=== PATIENT | male | born 1935 | race Caucasian/White ===

== ENCOUNTER → 2016-04-23 | Outpatient (CLI) | payer OTHER | PROVIDERS: ATTEND Psychiatry & Neurology Neurology | DX: R13.13 Dysphagia, pharyngeal phase (principal) | CPT/HCPCS: 74230; 92611; G8996; G8997; G8998 ==

== ENCOUNTER 2017-12-06 18:59 | Emergency (ER) | payer OTHER ==
--- NOTE | 2017-12-06 19:15 | EDPHY ---
H & P Stated Complaint: HTN 190/123 at home, takes metoprolol. Time Seen by Provider: 12/06/17 19:14 HPI/ROS: CHIEF COMPLAINT: Hypertension HISTORY OF PRESENT ILLNESS: The patient presents the ED after he noted a elevated blood pressure at home of 190/120. The patient reports he takes his blood pressure every night. He was having no symptoms of chest pain, shortness of breath, numbness or unilateral weakness. The patient is feeling quite anxious at this point time. In reviewing his records he has been on benzodiazepines in the past. He states he is currently not taking any medication for anxiety currently. He did have some wine prior to coming to the emergency department. He took his usual dose of metoprolol this evening without improvement of his symptoms which prompted his visit to the ED. The patient currently is asymptomatic. REVIEW OF SYSTEMS: A comprehensive 10 point review of systems is otherwise negative aside from elements mentioned in the history of present illness. Source: Patient Exam Limitations: No limitations - Personal History Current Tetanus/Diphtheria Vaccine: Unsure Current Tetanus Diphtheria and Acellular Pertussis (TDAP): Unsure - Medical/Surgical History Hx Asthma: No Hx Chronic Respiratory Disease: No Hx Diabetes: Yes Hx Cardiac Disease: Yes Hx Renal Disease: No Hx Cirrhosis: No Hx Alcoholism: No Hx HIV/AIDS: No Hx Splenectomy or Spleen Trauma: No - Social History Smoking Status: Former smoker - Physical Exam Exam: General Appearance: Alert, no distress Eyes: Pupils equal and round no pallor or injection ENT, Mouth: Mucous membranes moist Respiratory: There are no retractions, lungs are clear to auscultation Cardiovascular: Regular rate and rhythm Gastrointestinal: Abdomen is soft and nontender, no masses, bowel sounds normal Neurological: A&O, normal motor function, normal sensory exam, normal cranial nerves Skin: Warm and dry, no rashes Musculoskeletal: Neck is supple nontender Extremities: symmetrical, full range of motion Constitutional: Initial Vital Signs Temperature (C) 36.6 C 12/06/17 19:04 Heart Rate 78 12/06/17 19:04 Respiratory Rate 16 12/06/17 19:04 Blood Pressure 168/105 H 12/06/17 19:04 O2 Sat (%) 95 12/06/17 19:04 O2 Delivery Mode Room Air Allergies/Adverse Reactions: Sulfa (Sulfonamide Antibiotics) Allergy (Verified 12/06/17 19:08) Home Medications: Medication Instructions Recorded Alpha Lipoic Acid [Alpha Lipoic 600 mg PO DAILY 10/31/12 Acid] Alprazolam [Niravam 0.5mg] 0.5 mg PO HS PRN 10/31/12 Aspirin [Aspir 81] 81 mg PO DAILY 10/31/12 Atorvastatin Calcium [Lipitor 10 10 mg PO DAILY 10/31/12 mg (RX)] Cholecalciferol (Vitamin D3) 5,000 unit PO DAILY 10/31/12 [Vitamin D3] Docusate Sodium [Colace 100 MG 100 mg PO DAILY 10/31/12 (OTC)] Levothyroxine [Synthroid 112 mcg 112 mcg PO DAILY06 10/31/12 (RX)] Loratadine [Wal-Itin] 10 mg PO DAILY PRN 10/31/12 Lutein 40 mg PO DAILY 10/31/12 Md Sawyer 10/3110/31/12 Metoprolol Succinate Xr [Toprol Xl 50 mg PO BID 10/31/12 50 mg (RX)] Multivitamins [Tab-A-Kristian] 1 each PO DAILY 10/31/12 Pharmacy Completed 10/31/12 10/31/12 Ubidecarenone [Co Q-10] 100 mg PO DAILY 10/31/12 Vitamin B Complex [Vitamin B 1 each PO DAILY 10/31/12 Complex (OTC)] Warfarin Sodium [Jantoven] 5 mg PO HS 10/31/12 Fenofibrate 54 mg PO DAILY 07/07/15 Lisinopril 20 mg PO 07/07/15 Pravastatin Sodium 10 mg PO DAILY 07/07/15 Medical Decision Making ED Course/Re-evaluation: The patient's blood pressure upon arrival is 160/100. He is neurologically intact. He has no complaints of chest pain. He does appear slightly anxious. I have reassured the patient that his blood pressure has been well controlled and he has no symptoms suggestive of end-organ dysfunction. Plan will be for observation his blood pressure in the emergency department. Blood pressure continues to be in the 160/90 range. The patient has no acute complaints. He does appear to be quite anxious which likely is precipitating his mild hypertension. I do not feel that adjustment of his medications is indicated at this point time. The patient will be discharged from the emergency department with instructions to return to the ED. Differential Diagnosis: Differential diagnosis considered includes hypertensive urgency, hypertensive emergency, anxiety Departure - Departure Disposition: Home, Routine, Self-Care Clinical Impression: Hypertension Condition: Good Instructions: Chronic Hypertension (ED) Additional Instructions: 1. Please keep a close eye on your blood pressure. Return to the ED for markedly elevated blood pressure, chest pain, shortness of breath or other concerns. 2. Take a regular medications as prescribed. 3. If your blood pressure continues to be mildly elevated I do recommend that you follow up with Dr. Sands this week for a blood pressure recheck. Referrals: SEFERINO SANDS [Primary Care Provider] - As per Instructions
[2017-12-06] MEDS ORDERED: LORAZEPAM 1 MG PREPACK#4 BTL TAKEHOME ONE (20:13)
[2017-12-06 20:20] VITALS: BP 152/109
== END 2017-12-06 20:19 | disposition home or self-care (01) ==
DX: I10 Essential (primary) hypertension (principal); Z87.891 Personal history of nicotine dependence

== ENCOUNTER → 2018-02-05 | Outpatient (CLI) | payer OTHER | LOC: FIMAGING 16:50 | PROVIDERS: ATTEND Internal Medicine | DX: I10 Essential (primary) hypertension (principal) ==